=== PATIENT | male | born 1950 | race African-American/Black ===

== ENCOUNTER 2022-10-30 17:17 | Emergency (ER) | payer OTHER ==
[~2022-10-30] VITALS: Ht 180.3 cm; Wt 73.0 kg
[~2022-10-30 17:17] MED LIST: NYST15CR38 TP
[2022-10-30 18:21] VITALS: BP 136/72
== END 2022-10-30 18:30 | disposition home or self-care (01) ==
LOC: ER 17:17
DX: K40.90 Unilateral inguinal hernia, without obstruction or gangrene, not specified as recurrent (principal); Z98.890 Other specified postprocedural states
CPT/HCPCS: 99282